=== PATIENT | female | born 1930 | race Caucasian/White ===

== ENCOUNTER → 2017-02-18 | Outpatient (CLI) | payer MEDICARE, MEDICAID ==
[2017-02-18 11:16] LABS: PTH INTACT INTERPRETATION ** Comment **
[2017-02-18 11:46] LABS: BLOOD UREA NITROGEN 19 mg/dL (7-18)
[2017-02-18 11:57] LABS: PARATHYROID HORMONE INTACT 382.7 pg/mL (14-72)
[2017-02-19 12:42] LABS: HEPATITIS C VIRUS ANTIBODY Nonreactive (Nonreactive)
== END | disposition home or self-care (01) ==
LOC: LAB 11:11
PROVIDERS: ATTEND Internal Medicine Nephrology
DX: I12.9 Hypertensive chronic kidney disease with stage 1 through stage 4 chronic kidney disease, or unspecified chronic kidney disease (principal); N18.9 Chronic kidney disease, unspecified; G46.3 Brain stem stroke syndrome
CPT/HCPCS: 36415; 80069; 80074; 81001; 82306; 82310; 82570; 82784; 83883; 83970; 84155; 84156; 84165; 86038; 86160; 86334